=== PATIENT | male | born 1990 | race Hispanic/Latino ===

== ENCOUNTER 2018-12-08 17:36 | Emergency (ER) | payer OTHER ==
[2018-12-08] MEDS ORDERED: ACETAMINOPHEN EXTRA STRENGTH 500 MG TABLET ONE (17:53)
== END 2018-12-08 19:09 | disposition home or self-care (01) ==
LOC: EDH 17:36
DX: J03.90 Acute tonsillitis, unspecified (principal)
CPT/HCPCS: 36415; 87880